=== PATIENT | female | born 1995 | race Caucasian/White ===

== ENCOUNTER 2023-10-18 18:17 | Emergency (ER) | payer OTHER ==
[~2023-10-18] VITALS: Ht 170.2 cm; Wt 52.6 kg
[2023-10-18] MEDS ORDERED: CLIN1CAP70 PO (19:44)
[2023-10-18] MEDS ORDERED: CEFU500T43 PO (19:44)
[2023-10-18] MEDS: AMPICILLIN & SULBACTAM SODIUM 3 GM in SODIUM CHL 0.9% 100 ML IV ONE (20:39)
[2023-10-18] MEDS: PIPERACILLIN-TAZOB 3.375GM 100 ML IV ONE (20:52)
[2023-10-18 22:14] VITALS: BP 142/92; PULSE 85; RESP 18; TEMP 97.8; O2SAT 99
== END 2023-10-18 22:14 | disposition home or self-care (01) ==
LOC: ER 18:17
DX: L02.416 Cutaneous abscess of left lower limb (principal); Z88.2 Allergy status to sulfonamides; W55.01XA Bitten by cat, initial encounter; Y93.89 Activity, other specified; Y92.89 Other specified places as the place of occurrence of the external cause; Y99.8 Other external cause status
CPT/HCPCS: 96365